=== PATIENT | male | born 1985 | race Caucasian/White ===

== ENCOUNTER 2018-06-30 10:02 | Emergency (ER) | payer BC ==
[2018-06-30 10:24] VITALS: BP 109/66
--- NOTE | 2018-06-30 10:52 | UC ---
Skin Complaint HPI - HPI Summary HPI Summary: 33 yo M, hx of genital HSV, p/w rash to base of penis and lower abdomen for 2-3 days. Symptoms began after having sex with the same partner whom had transmitted HSV years ago. She developed similar rash after their recent intercourse. He describes the rash as itchy, red w some pus, mildly painful. Had similar rash 1 yr ago and was treated w a medication that he's unable to recall. Patient also shaves his abdomen/genitals but believes he last shaved roughly 1 week ago. not currently on medications - History of Current Complaint Chief Complaint: UCGeneralIllness Time Seen by Provider: 06/30/18 10:34 Stated Complaint: PERSONAL Hx Obtained From: Patient Pain Intensity: 1 - Allergy/Home Medications Allergies/Adverse Reactions: Allergies Allergy/AdvReac Type Severity Reaction Status Date / Time No Known Allergies Allergy Verified 06/30/18 10:18 Review of Systems Constitutional: Negative Skin: Rash Respiratory: Negative Gastrointestinal: Negative Genitourinary: Ulceration/Lesion All Other Systems Reviewed And Are Negative: Yes PMH/Surg Hx/FS Hx/Imm Hx - Surgical History Surgical History: None - Social History Alcohol Use: Weekly Substance Use Type: None Smoking Status (MU): Never Smoked Tobacco - Immunization History Most Recent Tetanus Shot: UNSURE Physical Exam Triage Information Reviewed: Yes Appearance: Well-Appearing, No Pain Distress, Well-Nourished Vital Signs: Initial Vital Signs Temp 97.4 F 06/30/18 10:19 Pulse 58 06/30/18 10:19 Resp 16 06/30/18 10:19 BP 109/66 06/30/18 10:19 Pulse Ox 99 06/30/18 10:19 Vital Signs Reviewed: Yes Eyes: Positive: Conjunctiva Clear Respiratory: Positive: No respiratory distress, No accessory muscle use Abdomen Description: Positive: Soft. Negative: Distended Male Genital Exam: Positive: Lesions - small pustular lesions on erythematous base, non-vesicular, extending from penile base to lower abdomen. no ulcerations Neurological: Positive: Muscle Tone Normal Psychological Exam: Normal Skin: Positive: rashes - see genital exam Course/Dx - Course Course Of Treatment: HSV swab obtained - Differential Diagnoses - Skin Complaint Differential Diagnoses: Other - prickly heat rash, razor burn, HSV - Diagnoses Provider Diagnoses: razor burn, possible HSV Discharge - Sign-Out/Discharge Documenting (check all that apply): Patient Departure All imaging exams completed and their final reports reviewed: No Studies - Discharge Plan Condition: Stable Disposition: HOME Prescriptions: Mupirocin 2% CREAM* [Bactroban 2% CREAM*] 1 applic TOPICAL BID #1 tube ValACYclovir (*) [Valtrex 500 mg (*)] 1,000 mg PO Q12HR 7 Days #14 tab Patient Education Materials: Genital Herpes Simplex (ED) Referrals: No Primary Care Phys,NOPCP [Primary Care Provider] - Additional Instructions: A HSV (herpes) test was sent today. You will be called with the result - Billing Disposition and Condition Condition: STABLE Disposition: Home
== END 2018-06-30 11:23 | disposition home or self-care (01) ==
LOC: UCCORT 10:02
DX: L73.1 Pseudofolliculitis barbae (principal); Z86.19 Personal history of other infectious and parasitic diseases
CPT/HCPCS: 81003; 87529; 99202; G0463